=== PATIENT | female | born 1995 | race Two or more races ===

== ENCOUNTER → 2025-07-11 | Outpatient (CLI) | payer MEDICAID, SELFPAY ==
--- NOTE | 2025-07-11 15:00 | XR_ITS ---
Examination: Breast ultrasound complete, bilateral Date and time of exam: July 11, 2025, 1456 hours INDICATIONS: Breast discharge and pain beginning one year ago Technique: Real-time grayscale ultrasonographic imaging bilateral breasts, including all 4 quadrants as well as nipple retroareolar and axillary regions. Findings: Sonographic images right breast 10:00 nodule indistinct margins, 2.2 x 1.3 x 1.9 cm Sonographic images left breast 12:00 nodule 7 x 7 mm IMPRESSION: BI-RADS Category 4: Suspicious for malignancy Suspicious nodule 10:00 position right breast, biopsy is needed to exclude breast carcinoma, this nodule is amenable to ultrasound-guided breast biopsy for diagnosis. Also recommend diagnostic mammography follow-up
== END | disposition home or self-care (01) ==
PROVIDERS: PCP Nurse Practitioner Family; Referring Provider Nurse Practitioner Family; Visit Provider Nurse Practitioner Family
DX: R92.343 Mammographic extreme density, bilateral breasts (principal); N63.11 Unspecified lump in the right breast, upper outer quadrant
CPT/HCPCS: 76641